=== PATIENT | female | born 1945 | race Caucasian/White ===

== ENCOUNTER 2024-03-24 16:25 | Emergency (ER) | payer OTHER, BC ==
[2024-03-24 16:37] VITALS: BP 115/73; PULSE 72; RESP 18; TEMP 98.4; BMI 19.5
== END 2024-03-24 18:46 | disposition home or self-care (01) ==
LOC: JER 16:25
DX: U07.1 COVID-19 (principal); R05.9 Cough, unspecified; R50.9 Fever, unspecified
CPT/HCPCS: 71045-TC-FY; 99283-25